=== PATIENT | female | born 1975 | race Caucasian/White ===

== ENCOUNTER 2020-05-13 19:16 | Emergency (ER) | payer MEDICAID ==
[~2020-05-13] VITALS: Ht 165.1 cm; Wt 102.2 kg
[2020-05-13 19:26] VITALS: BP 176/112
[2020-05-13] MEDS ORDERED: SULF1TAB49 PO (20:41)
== END 2020-05-13 21:01 | disposition home or self-care (01) ==
LOC: ER 19:16
DX: S80.862A Insect bite (nonvenomous), left lower leg, initial encounter (principal); L02.416 Cutaneous abscess of left lower limb; Z79.2 Long term (current) use of antibiotics; W57.XXXA Bitten or stung by nonvenomous insect and other nonvenomous arthropods, initial encounter; Y93.89 Activity, other specified; Y92.89 Other specified places as the place of occurrence of the external cause; Y99.8 Other external cause status
CPT/HCPCS: 99283

== ENCOUNTER 2020-07-16 10:52 | Inpatient (IN) | payer MEDICAID ==
[~2020-07-16] VITALS: Ht 162.6 cm; Wt 100.0 kg
[2020-07-16] MEDS ORDERED: normal saline 1000ML IV soln IVB ONE (11:15)
[2020-07-16 11:38] LABS: URINE HCG NEGATIVE (NEG)
[2020-07-16 11:50] LABS: CLARITY,URINE CLOUDY (Clear); COLOR,URINE YELLOW (Yellow); GLUCOSE, URINE NEGATIVE (Neg); KETONES,URINE NEGATIVE (Neg); LEUKOCYTE ESTERASE ,URINE MODERATE (Neg); NITRITES, URINE POSITIVE (Neg); OCCULT BLOOD,URINE LARGE (Neg); PROTEIN,URINE 100 mg/dl (Neg)
[2020-07-16 11:51] LABS: BASOPHILS % (AUTO) 0.1 % (0-1); EOSINOPHILS # (AUTO) 0.1 X10'3 (0-0.9); EOSINOPHILS % (AUTO) 0.6 % (0-6); HEMOGLOBIN 15.2 g/dl (12.0-16.0); LYMPHOCYTES # (AUTO) 1.3 X10'3 (1.1-4.8); LYMPHOCYTES % (AUTO) 7.1 % (21-51); MEAN CORPUSCULAR HEMOGLOBIN 36.2 PG (27.0-31.0); MEAN CORPUSCULAR HGB CONC 33.8 g/dL (33.0-36.5); MEAN PLATELET VOLUME 7.9 FL (7.4-10.4); MONOCYTES # (AUTO) 1.1 X10'3 (0-0.9); MONOCYTES % (AUTO) 6.4 % (2-12); NEUTROPHILS # (AUTO) 15.1 X10'3 (1.8-7.7); NEUTROPHILS % (AUTO) 85.8 % (42-75); PLATELET COUNT 350 X10'3 (140-440); RED BLOOD COUNT 4.21 X10'6 (4.20-5.60); RED CELL DISTRIBUTION WIDTH 16.9 % (11.5-14.5); WHITE BLOOD COUNT 17.6 X10'3 (4.5-11.0)
[2020-07-16 11:57] LABS: UA COLLECTION TYPE CLN CATCH MIDSTREAM
[2020-07-16 11:59] LABS: ALANINE AMINOTRANSFERASE 43 U/L (12-78); ALBUMIN 3.1 G/DL (3.4-5.0); ALBUMIN/GLOBULIN RATIO 0.6 (1.1-1.5); ALKALINE PHOSPHATASE 73 IU/L (46-116); ANION GAP 12 (8-16); ASPARTATE AMINO TRANSFERASE 38 U/L (10-37); BILIRUBIN,TOTAL 2.6 MG/DL (0.1-1.0); BLOOD UREA NITROGEN 6 MG/DL (7-18); BUN/CREATININE RATIO 5.9 (6.6-38.0); CALCIUM 8.8 MG/DL (8.5-10.1); CHLORIDE 104 MMOL/L (99-107); CREATININE 1.01 MG/DL (0.40-0.90); GLUCOSE 129 MG/DL (70-104); LIPASE < 50 U/L (73-393); POTASSIUM 3.7 MMOL/L (3.5-5.1); SODIUM 141 MMOL/L (135-145); TOTAL CARBON DIOXIDE 24.6 MMOL/L (24-32); TOTAL PROTEIN 7.9 G/DL (6.4-8.2); eGFR 59 ML/MIN
[2020-07-16 12:13] LABS: SQUAMOUS EPITHELIAL CELL,UR MANY /LPF (FEW)
[2020-07-16 12:14] LABS: MUCUS STRANDS MODERATE /LPF (Neg)
[2020-07-16 12:17] LABS: BACTERIA,URINE 3+ /HPF (Neg)
[2020-07-16 12:19] LABS: WBC CLUMPS,URINE MANY /HPF (NEGATIVE); WBC,URINE TNTC /HPF (0-4)
[2020-07-16] MEDS ORDERED: acetaminophen 325mg tablet PO ONE (12:30)
[2020-07-16] MEDS ORDERED: CefTRIAXone/D5W-Rocephin 1gm 50 ML IV ONE (13:10)
[2020-07-16] MEDS ORDERED: ondansetron/PF 4mg/2ml inj IV ONE ×2 (13:15→19:50)
[2020-07-16] MEDS ORDERED: iohexol 300mg/ml 100ml inj. ONE (13:38)
[2020-07-16] MEDS ORDERED: normal saline 1000ml 1,000 ML IV ONE (16:30)
[2020-07-16] MEDS ORDERED: potassium Cl 20 mEq SR tablet PO PRN (19:25)
[2020-07-16] MEDS ORDERED: acetaminophen 325mg tablet PO PRN (19:25)
[2020-07-16] MEDS ORDERED: potassium CL 10mEq/100ml bag 100 ML IV PRN ×2 (19:25)
[2020-07-16] MEDS: K and/or MAG REPLACEMENT MC SCH (20:00)
[2020-07-16] MEDS: levoFLOXACIN-Levaquin 500mg/D5 100 ML IV SCH (21:02)
[2020-07-16] MEDS: morphine 2 MG/ML inj. syringe IV PRN (21:30)
[2020-07-16] MEDS: ondansetron/PF 4mg/2ml inj IV PRN (21:30)
[2020-07-16] MEDS: normal saline 1000ml 1,000 ML IV SCH (22:24)
--- NOTE | 2020-07-16 22:27 | NUR ---
temp 102.6 after tylenol. paged
[2020-07-16] MEDS ORDERED: ibuprofen tablet 400 MG TABLET PO ONE (22:35)
[2020-07-17] MEDS: metroNIDAZOLE-Flagyl 500mg/NS 100 ML IV SCH ×4 (01:11→23:45)
[2020-07-17] MEDS: normal saline 1000ml 1,000 ML IV SCH ×3 (05:25→23:44)
--- NOTE | 2020-07-17 07:50 | NUR ---
Pt became tearful when asked about home meds. She stated being dx w/v Bipolar I, but off meds since 09/2019 "because I haven't been to [facility] in 6 yrs and they wouldn't get me back in." Hospitalist Noe page seeking possible restart of Celexa 20mg daily.
[2020-07-17] MEDS: K and/or MAG REPLACEMENT MC SCH ×2 (08:00→20:00)
[2020-07-17] MEDS: levoFLOXACIN-Levaquin 500mg/D5 100 ML IV SCH (08:41)
[2020-07-17] MEDS: morphine 2 MG/ML inj. syringe IV PRN (08:51)
[2020-07-17] MEDS: ondansetron/PF 4mg/2ml inj IV PRN (08:51)
[2020-07-17 08:56] LABS: BASOPHILS % (AUTO) 0.3 % (0-1); EOSINOPHILS % (AUTO) 0.3 % (0-6); HEMATOCRIT 37.2 % (35.0-45.0); HEMOGLOBIN 12.3 g/dl (12.0-16.0); LYMPHOCYTES # (AUTO) 0.9 X10'3 (1.1-4.8); LYMPHOCYTES % (AUTO) 7.9 % (21-51); MEAN CORPUSCULAR HEMOGLOBIN 35.7 PG (27.0-31.0); MEAN CORPUSCULAR HGB CONC 33.1 g/dL (33.0-36.5); MEAN CORPUSCULAR VOLUME 107.7 FL (78-98); MEAN PLATELET VOLUME 8.2 FL (7.4-10.4); MONOCYTES # (AUTO) 0.8 X10'3 (0-0.9); MONOCYTES % (AUTO) 7.3 % (2-12); NEUTROPHILS # (AUTO) 9.5 X10'3 (1.8-7.7); NEUTROPHILS % (AUTO) 84.2 % (42-75); PLATELET COUNT 229 X10'3 (140-440); RED BLOOD COUNT 3.45 X10'6 (4.20-5.60); RED CELL DISTRIBUTION WIDTH 16.6 % (11.5-14.5); WHITE BLOOD COUNT 11.3 X10'3 (4.5-11.0)
[2020-07-17 08:59] LABS: ALBUMIN 2.2 G/DL (3.4-5.0); ANION GAP 7 (8-16); BLOOD UREA NITROGEN 8 MG/DL (7-18); BUN/CREATININE RATIO 9.5 (6.6-38.0); CALCIUM 7.7 MG/DL (8.5-10.1); CHLORIDE 110 MMOL/L (99-107); CREATININE 0.84 MG/DL (0.40-0.90); GLUCOSE 108 MG/DL (70-104); POTASSIUM 3.8 MMOL/L (3.5-5.1); SODIUM 143 MMOL/L (135-145); TOTAL CARBON DIOXIDE 26.2 MMOL/L (24-32); eGFR 73 ML/MIN
--- NOTE | 2020-07-17 09:58 | NUR ---
Pt gave verbal consent to update mother Meredith on status which was done.
[2020-07-17] MEDS ORDERED: magnesium Cl slow-release 64mg tablet PO PRN (10:10)
[2020-07-17] MEDS ORDERED: magnesium 4gm in 100ml NS 100 ML IV PRN (10:10)
[2020-07-17] MEDS: citalopram 20mg tablet PO SCH (10:42)
[2020-07-17] MEDS: HYDROmorphone inj. 0.5 MG/0.5 ML DISP.SYRIN IV PRN ×2 (11:04→17:45)
[2020-07-17] MEDS ORDERED: NO HOME MEDS (14:18)
--- NOTE | 2020-07-17 17:00 | NUR ---
given warm blanket,vital signs rechecked.
[2020-07-17 17:40] VITALS: BP 129/89
--- NOTE | 2020-07-17 18:40 | NUR ---
Problems reprioritized. Patient report given, questions answered & plan of care reviewed with CARMEL Stein.
--- NOTE | 2020-07-17 18:41 | NUR ---
Patient in room [facility] 340. I have received report from CARMEL Graham and had the opportunity to ask questions and assume patient care.
[2020-07-17] MEDS ORDERED: K and/or MAG REPLACEMENT MC SCH (20:00)
[2020-07-18 02:56] LABS: OCCULT BLOOD STOOL NEGATIVE (Neg)
--- NOTE | 2020-07-18 06:05 | NUR ---
Patient in room [facility] 340. I have received report from CARMEL Stein and had the opportunity to ask questions and assume patient care.
--- NOTE | 2020-07-18 06:11 | NUR ---
Problems reprioritized. Patient report given, questions answered & plan of care reviewed with CARMEL Graham.
[2020-07-18 06:30] VITALS: BP 124/91
[2020-07-18 06:45] LABS: BASOPHILS % (AUTO) 0.4 % (0-1); EOSINOPHILS % (AUTO) 0.6 % (0-6); HEMATOCRIT 35.6 % (35.0-45.0); LYMPHOCYTES # (AUTO) 1.2 X10'3 (1.1-4.8); LYMPHOCYTES % (AUTO) 15.1 % (21-51); MEAN CORPUSCULAR HEMOGLOBIN 36.1 PG (27.0-31.0); MEAN CORPUSCULAR HGB CONC 33.7 g/dL (33.0-36.5); MEAN CORPUSCULAR VOLUME 107.2 FL (78-98); MEAN PLATELET VOLUME 8.7 FL (7.4-10.4); MONOCYTES # (AUTO) 0.7 X10'3 (0-0.9); NEUTROPHILS # (AUTO) 5.8 X10'3 (1.8-7.7); NEUTROPHILS % (AUTO) 74.9 % (42-75); PLATELET COUNT 235 X10'3 (140-440); RED BLOOD COUNT 3.32 X10'6 (4.20-5.60); RED CELL DISTRIBUTION WIDTH 16.5 % (11.5-14.5); WHITE BLOOD COUNT 7.7 X10'3 (4.5-11.0)
--- NOTE | 2020-07-18 06:45 | NUR ---
Patient in room [facility] 340. I have received report from Emil BURT and had the opportunity to ask questions and assume patient care. Addendum: 07/18/20 at 0646 by Emil Beltrán RN Correction to the above note: charted in the wrong chart. I am not assigned to this patient
[2020-07-18 07:00] LABS: ALANINE AMINOTRANSFERASE 30 U/L (12-78); ALBUMIN 2.2 G/DL (3.4-5.0); ALBUMIN/GLOBULIN RATIO 0.6 (1.1-1.5); ALKALINE PHOSPHATASE 51 IU/L (46-116); ANION GAP 10 (8-16); ASPARTATE AMINO TRANSFERASE 20 U/L (10-37); BILIRUBIN,TOTAL 0.9 MG/DL (0.1-1.0); BLOOD UREA NITROGEN 5 MG/DL (7-18); BUN/CREATININE RATIO 7.2 (6.6-38.0); CALCIUM 8.8 MG/DL (8.5-10.1); CHLORIDE 111 MMOL/L (99-107); CREATININE 0.69 MG/DL (0.40-0.90); GLUCOSE 91 MG/DL (70-104); MAGNESIUM 1.7 MG/DL (1.5-2.4); PHOSPHORUS 2.4 MG/DL (2.3-4.5); POTASSIUM 3.2 MMOL/L (3.5-5.1); SODIUM 144 MMOL/L (135-145); TOTAL CARBON DIOXIDE 22.7 MMOL/L (24-32); TOTAL PROTEIN 6.2 G/DL (6.4-8.2); eGFR > 90 ML/MIN
[2020-07-18] MEDS: K and/or MAG REPLACEMENT MC SCH ×2 (07:29→20:00)
[2020-07-18] MEDS: citalopram 20mg tablet PO SCH (09:56)
[2020-07-18] MEDS: metroNIDAZOLE-Flagyl 500mg/NS 100 ML IV SCH ×2 (09:57→17:29)
[2020-07-18] MEDS: heparin, porcine 5000 units/ml vial SQ SCH ×2 (09:59→21:13)
[2020-07-18] MEDS: HYDROmorphone inj. 0.5 MG/0.5 ML DISP.SYRIN IV PRN (10:13)
[2020-07-18] MEDS: potassium Cl 20 mEq SR tablet PO PRN ×3 (10:22→23:05)
[2020-07-18 11:00] VITALS: BP 133/86
[2020-07-18] MEDS ORDERED: HYDROcodone/acetaminophen 5mg/325mg tablet PO PRN (12:05)
[2020-07-18] MEDS: normal saline 1000ml 1,000 ML IV SCH ×2 (12:10→23:05)
[2020-07-18] MEDS: levoFLOXACIN-Levaquin 500mg/D5 100 ML IV SCH (12:10)
[2020-07-18] MEDS: HYDROcodone/acetaminophen 10/325mg tab PO PRN ×3 (12:14→23:09)
[2020-07-18 18:00] VITALS: BP 120/79
--- NOTE | 2020-07-18 18:30 | NUR ---
Problems reprioritized. Patient report given, questions answered & plan of care reviewed with CARMEL Stein.
--- NOTE | 2020-07-18 19:05 | NUR ---
I have received report from CARMEL Odom and had the opportunity to ask questions and assume patient care. Addendum: 07/19/20 at 0611 by Emil Beltrán RN Received report from CARMEL Graham
[2020-07-18] MEDS: lactobacillus rhamnosus 10,000 MMU CELLS/CAPSULE PO SCH (20:00)
[2020-07-19] MEDS: metroNIDAZOLE-Flagyl 500mg/NS 100 ML IV SCH ×2 (00:03→10:45)
--- NOTE | 2020-07-19 06:05 | NUR ---
Patient in room [facility] 340. I have received report from CARMEL Stein and had the opportunity to ask questions and assume patient care.
--- NOTE | 2020-07-19 06:10 | NUR ---
Problems reprioritized. Patient report given, questions answered & plan of care reviewed with CARMEL Graham.
[2020-07-19 06:30] VITALS: BP 149/99
[2020-07-19 06:33] LABS: BASOPHILS % (AUTO) 0.8 % (0-1); EOSINOPHILS # (AUTO) 0.1 X10'3 (0-0.9); EOSINOPHILS % (AUTO) 2.6 % (0-6); HEMATOCRIT 32.8 % (35.0-45.0); HEMOGLOBIN 11.1 g/dl (12.0-16.0); LYMPHOCYTES % (AUTO) 21.8 % (21-51); MEAN CORPUSCULAR HEMOGLOBIN 36.6 PG (27.0-31.0); MEAN CORPUSCULAR HGB CONC 33.8 g/dL (33.0-36.5); MEAN CORPUSCULAR VOLUME 108.1 FL (78-98); MEAN PLATELET VOLUME 8.2 FL (7.4-10.4); MONOCYTES # (AUTO) 0.6 X10'3 (0-0.9); MONOCYTES % (AUTO) 12.2 % (2-12); NEUTROPHILS # (AUTO) 2.9 X10'3 (1.8-7.7); NEUTROPHILS % (AUTO) 62.6 % (42-75); PLATELET COUNT 233 X10'3 (140-440); RED BLOOD COUNT 3.04 X10'6 (4.20-5.60); RED CELL DISTRIBUTION WIDTH 16.5 % (11.5-14.5); WHITE BLOOD COUNT 4.6 X10'3 (4.5-11.0)
[2020-07-19 06:59] LABS: ALANINE AMINOTRANSFERASE 27 U/L (12-78); ALBUMIN 2.1 G/DL (3.4-5.0); ALBUMIN/GLOBULIN RATIO 0.6 (1.1-1.5); ALKALINE PHOSPHATASE 43 IU/L (46-116); ANION GAP 9 (8-16); ASPARTATE AMINO TRANSFERASE 20 U/L (10-37); BILIRUBIN,TOTAL 0.6 MG/DL (0.1-1.0); BLOOD UREA NITROGEN 3 MG/DL (7-18); CALCIUM 7.9 MG/DL (8.5-10.1); CHLORIDE 110 MMOL/L (99-107); GLUCOSE 82 MG/DL (70-104); MAGNESIUM 1.6 MG/DL (1.5-2.4); PHOSPHORUS 2.5 MG/DL (2.3-4.5); POTASSIUM 3.5 MMOL/L (3.5-5.1); SODIUM 141 MMOL/L (135-145); TOTAL CARBON DIOXIDE 21.9 MMOL/L (24-32); TOTAL PROTEIN 5.9 G/DL (6.4-8.2); eGFR > 90 ML/MIN
[2020-07-19] MEDS: normal saline 1000ml 1,000 ML IV SCH (07:25)
[2020-07-19] MEDS: K and/or MAG REPLACEMENT MC SCH (07:56)
[2020-07-19] MEDS: heparin, porcine 5000 units/ml vial SQ SCH ×2 (07:56→10:45)
[2020-07-19] MEDS: citalopram 20mg tablet PO SCH (10:45)
[2020-07-19] MEDS: lactobacillus rhamnosus 10,000 MMU CELLS/CAPSULE PO SCH (10:45)
[2020-07-19] MEDS ORDERED: METR-159 PO (10:54)
[2020-07-19] MEDS ORDERED: LEVO750T46 PO (10:54)
[2020-07-19] MEDS ORDERED: LACT1CAP26 PO (10:54)
[2020-07-19 11:00] VITALS: BP 133/82
[2020-07-19] MEDS: levoFLOXACIN-Levaquin 500mg/D5 100 ML IV SCH (12:44)
--- NOTE | 2020-07-19 16:00 | NUR ---
DC inst provided to pt. IV DC'd, tip intact. All belongings sent w/pt. WC to front lobby.
== END 2020-07-19 15:58 | disposition home or self-care (01) | DRG 720 ==
LOC: ER 10:53 → ED HOLD 19:24 → SUR 3N 07-17 17:42
PROVIDERS: ADMIT Internal Medicine; ATTEND Internal Medicine
DX: A41.9 Sepsis, unspecified organism (principal); N12 Tubulo-interstitial nephritis, not specified as acute or chronic; F32.9 Major depressive disorder, single episode, unspecified; I10 Essential (primary) hypertension; K50.90 Crohn's disease, unspecified, without complications; Z20.828 Contact with and (suspected) exposure to other viral communicable diseases; Z87.59 Personal history of other complications of pregnancy, childbirth and the puerperium; K52.9 Noninfective gastroenteritis and colitis, unspecified
CPT/HCPCS: 36415; 74177; 76775; 80048; 80053; 81001; 81025; 82272; 83605; 83690; 83735; 84100; 84145; 84443; 85025; 87040; 87081; 87088; 87502; 87503; 87635; 89055; 99285; G0378; J0696; J1170; J1644; J1956; J2270; J2405; J3490; J7030; Q9967

== ENCOUNTER 2021-02-13 09:22 | Inpatient (IN) | payer MEDICAID ==
[~2021-02-13] VITALS: Ht 165.1 cm; Wt 88.6 kg
[~2021-02-13 09:22] MED LIST: LACT1CAP26 PO
[2021-02-13] MEDS ORDERED: ringers solution, lacted 1,000 ML IV ONE ×2 (10:15→12:10)
[2021-02-13] MEDS ORDERED: morphine 4 MG/ML inj SYRINge IV ONE ×2 (10:15→12:10)
[2021-02-13] MEDS ORDERED: haloperidol lactate 5mg/ml inj IV ONE (10:15)
[2021-02-13 10:30] LABS: BASOPHILS % (AUTO) 0.1 % (0-1); EOSINOPHILS % (AUTO) 0 % (0-6); HEMATOCRIT 46.7 % (35.0-45.0); HEMOGLOBIN 15.7 g/dl (12.0-16.0); LYMPHOCYTES # (AUTO) 0.5 X10'3 (1.1-4.8); LYMPHOCYTES % (AUTO) 2.3 % (21-51); MEAN CORPUSCULAR HEMOGLOBIN 36.1 PG (27.0-31.0); MEAN CORPUSCULAR HGB CONC 33.7 g/dL (33.0-36.5); MEAN CORPUSCULAR VOLUME 107.3 FL (78-98); MEAN PLATELET VOLUME 8.1 FL (7.4-10.4); MONOCYTES # (AUTO) 1.2 X10'3 (0-0.9); NEUTROPHILS # (AUTO) 18.1 X10'3 (1.8-7.7); NEUTROPHILS % (AUTO) 91.6 % (42-75); PLATELET COUNT 278 X10'3 (140-440); RED BLOOD COUNT 4.36 X10'6 (4.20-5.60); RED CELL DISTRIBUTION WIDTH 17.6 % (11.5-14.5); WHITE BLOOD COUNT 19.8 X10'3 (4.5-11.0)
[2021-02-13 10:49] LABS: ALANINE AMINOTRANSFERASE 29 U/L (12-78); ALBUMIN/GLOBULIN RATIO 0.9 (1.1-1.5); ALKALINE PHOSPHATASE 72 IU/L (46-116); ANION GAP 22 (8-16); ASPARTATE AMINO TRANSFERASE 30 U/L (10-37); BILIRUBIN,TOTAL 1.4 MG/DL (0.1-1.0); BLOOD UREA NITROGEN 11 MG/DL (7-18); BUN/CREATININE RATIO 8.3 (6.6-38.0); CALCIUM 8.9 MG/DL (8.5-10.1); CHLORIDE 100 MMOL/L (99-107); CREATININE 1.32 MG/DL (0.40-0.90); GLUCOSE 174 MG/DL (70-104); POTASSIUM 4.2 MMOL/L (3.5-5.1); SODIUM 138 MMOL/L (135-145); TOTAL CARBON DIOXIDE 15.7 MMOL/L (24-32); TOTAL PROTEIN 8.4 G/DL (6.4-8.2); eGFR 43 ML/MIN
[2021-02-13] MEDS ORDERED: iohexol 300mg/ml 100ml inj. ONE (10:55)
[2021-02-13 11:09] LABS: LIPASE 4806 U/L (73-393)
[2021-02-13 12:34] LABS: CLARITY,URINE CLEAR (Clear); COLOR,URINE YELLOW (Yellow); GLUCOSE, URINE NEGATIVE (Neg); KETONES,URINE 15 mg/dl (Neg); LEUKOCYTE ESTERASE ,URINE NEGATIVE (Neg); NITRITES, URINE NEGATIVE (Neg); OCCULT BLOOD,URINE SMALL (Neg); PH,URINE 6.5 (4.8-8.0); PROTEIN,URINE 30 mg/dl (Neg); UROBILINOGEN,URINE 0.2 E.U/dL (0.2-1.0)
[2021-02-13 12:37] LABS: URINE HCG NEGATIVE (NEG)
[2021-02-13 12:38] LABS: UA COLLECTION TYPE CLN CATCH MIDSTREAM
[2021-02-13 12:39] LABS: WBC,URINE 0-4 /HPF (0-4)
[2021-02-13 12:40] LABS: BACTERIA,URINE FEW /HPF (Neg); MUCUS STRANDS NONE SEEN /LPF (Neg); RBC,URINE NONE SEEN /HPF (0-2); SQUAMOUS EPITHELIAL CELL,UR MODERATE /LPF (FEW)
[2021-02-13] MEDS ORDERED: LORazepam 1 MG tablet PO PRN (12:50)
[2021-02-13] MEDS ORDERED: HYDROcodone/acetaminophen 5mg/325mg tablet PO PRN (12:50)
[2021-02-13] MEDS ORDERED: LORazepam 2 mg/ml vial IV PRN (12:50)
[2021-02-13] MEDS ORDERED: potassium Cl 40MEQ/1/2NS 520ml 520 ML IV PRN ×2 (12:50)
[2021-02-13] MEDS ORDERED: ondansetron/PF 4mg/2ml inj IV PRN (12:50)
[2021-02-13] MEDS ORDERED: potassium Cl 20 mEq SR tablet PO PRN (12:50)
[2021-02-13] MEDS ORDERED: magnesium hydroxide 30ml (MOM) UD suspension PO PRN (12:50)
[2021-02-13] MEDS ORDERED: acetaminophen 325mg tablet PO PRN ×2 (12:50)
[2021-02-13] MEDS ORDERED: magnesium 2GM in 50ml NS 50 ML IV PRN (12:50)
[2021-02-13] MEDS ORDERED: mag hydrox/Alum hydrox/simeth 30ml oral suspension PO PRN (12:50)
[2021-02-13] MEDS ORDERED: magnesium 4gm in 100ml NS 100 ML IV PRN (12:50)
[2021-02-13] MEDS ORDERED: morphine 2 MG/ML inj. syringe IV PRN (12:50)
[2021-02-13] MEDS ORDERED: DIVA-51 PO (13:24)
[2021-02-13] MEDS ORDERED: TRAZ-251 PO (13:24)
[2021-02-13] MEDS ORDERED: CITA20TA28 PO (13:28)
[2021-02-13 14:05] VITALS: BP 148/89
--- NOTE | 2021-02-13 14:16 | NUR ---
PAGER ID: [phone] MESSAGE: Isis [phone] - re [id number] [place] critical Lactic acid of 4.8. Any orders?
[2021-02-13] MEDS: normal saline 1000ml 1,000 ML IV SCH ×2 (14:39→19:19)
[2021-02-13] MEDS: HYDROcodone/acetaminophen 10/325mg tab PO PRN ×2 (15:02→21:38)
[2021-02-13] MEDS: morphine 2 MG/ML inj. syringe IV PRN ×2 (15:03→19:43)
[2021-02-13] MEDS: piperacillin/tazo 3.375gm/50ml 50 ML IV SCH (15:58)
[2021-02-13 18:00] VITALS: BP 156/101
--- NOTE | 2021-02-13 19:10 | NUR ---
Patient in room ORTHO 4009. I have received report from NILAM BURT and had the opportunity to ask questions and assume patient care.
[2021-02-13] MEDS: heparin, porcine 5000 units/ml vial SQ SCH (19:39)
[2021-02-13] MEDS: K and/or MAG REPLACEMENT MC SCH (19:56)
[2021-02-13] MEDS ORDERED: temazepam 15mg capsule PO PRN (21:00)
[2021-02-14] MEDS: piperacillin/tazo 3.375gm/50ml 50 ML IV SCH ×4 (00:08→23:21)
[2021-02-14] MEDS: morphine 2 MG/ML inj. syringe IV PRN ×6 (00:09→22:17)
[2021-02-14] MEDS: normal saline 1000ml 1,000 ML IV SCH ×5 (00:20→19:59)
[2021-02-14] MEDS: HYDROcodone/acetaminophen 10/325mg tab PO PRN ×6 (01:43→23:22)
[2021-02-14 06:00] VITALS: BP 156/104
[2021-02-14 06:44] LABS: CHOL/HDL RATIO 4.5 (0.00-4.99); CHOLESTEROL 183 MG/DL (0-200); HDL CHOLESTEROL 41 MG/DL (35-60); LDL CHOLESTEROL 86 MG/DL (50-100); LIPASE 1675 U/L (73-393); MAGNESIUM 1.4 MG/DL (1.5-2.4); TRIGLYCERIDES 322 MG/DL (20-135)
--- NOTE | 2021-02-14 06:45 | NUR ---
Problems reprioritized. Patient report given, questions answered & plan of care reviewed with JU BURT.
--- NOTE | 2021-02-14 06:46 | NUR ---
Patient in room ORTHO 4009C. I have received report from CARMEL GUIDO and had the opportunity to ask questions and assume patient care.
[2021-02-14] MEDS: K and/or MAG REPLACEMENT MC SCH ×2 (08:00→20:00)
[2021-02-14] MEDS: heparin, porcine 5000 units/ml vial SQ SCH ×2 (08:41→20:29)
[2021-02-14 10:00] VITALS: BP 131/95
[2021-02-14] MEDS: magnesium Cl slow-release 64mg tablet PO PRN ×2 (12:46→18:02)
[2021-02-14 18:00] VITALS: BP 142/95
--- NOTE | 2021-02-14 18:22 | NUR ---
Problems reprioritized. Patient report given, questions answered & plan of care reviewed with CARMEL ERICKSON.
[2021-02-14] MEDS: lactobacillus rhamnosus 10,000 MMU CELLS/CAPSULE PO SCH (20:29)
[2021-02-14 22:00] VITALS: BP 136/99
[2021-02-15] MEDS: normal saline 1000ml 1,000 ML IV SCH ×5 (00:35→21:19)
[2021-02-15] MEDS: morphine 2 MG/ML inj. syringe IV PRN ×5 (02:59→21:08)
[2021-02-15] MEDS: HYDROcodone/acetaminophen 10/325mg tab PO PRN ×5 (03:29→22:26)
--- NOTE | 2021-02-15 06:46 | NUR ---
Patient in room ORTHO 4007. I have received report from CARMEL ROSE and had the opportunity to ask questions and assume patient care.
[2021-02-15] MEDS: lactobacillus rhamnosus 10,000 MMU CELLS/CAPSULE PO SCH ×2 (07:08→21:16)
[2021-02-15] MEDS: heparin, porcine 5000 units/ml vial SQ SCH ×2 (07:09→21:18)
[2021-02-15] MEDS: piperacillin/tazo 3.375gm/50ml 50 ML IV SCH ×2 (07:24→16:02)
[2021-02-15] MEDS: K and/or MAG REPLACEMENT MC SCH ×2 (08:00→20:00)
[2021-02-15 10:00] VITALS: BP 139/97
[2021-02-15 10:33] LABS: BASOPHILS % (AUTO) 0.2 % (0-1); EOSINOPHILS % (AUTO) 0.1 % (0-6); HEMATOCRIT 33.1 % (35.0-45.0); HEMOGLOBIN 11.3 g/dl (12.0-16.0); LYMPHOCYTES # (AUTO) 0.8 X10'3 (1.1-4.8); LYMPHOCYTES % (AUTO) 6.3 % (21-51); MEAN CORPUSCULAR HEMOGLOBIN 36.5 PG (27.0-31.0); MEAN CORPUSCULAR VOLUME 107.3 FL (78-98); MEAN PLATELET VOLUME 8.1 FL (7.4-10.4); MONOCYTES # (AUTO) 1.1 X10'3 (0-0.9); MONOCYTES % (AUTO) 8.7 % (2-12); NEUTROPHILS # (AUTO) 10.8 X10'3 (1.8-7.7); NEUTROPHILS % (AUTO) 84.7 % (42-75); PLATELET COUNT 146 X10'3 (140-440); RED BLOOD COUNT 3.09 X10'6 (4.20-5.60); WHITE BLOOD COUNT 12.8 X10'3 (4.5-11.0)
[2021-02-15 12:54] LABS: ALANINE AMINOTRANSFERASE 16 U/L (12-78); ALBUMIN 2.4 G/DL (3.4-5.0); ALBUMIN/GLOBULIN RATIO 0.7 (1.1-1.5); ALKALINE PHOSPHATASE 50 IU/L (46-116); ANION GAP 11 (8-16); ASPARTATE AMINO TRANSFERASE 19 U/L (10-37); BILIRUBIN,TOTAL 0.9 MG/DL (0.1-1.0); BLOOD UREA NITROGEN 4 MG/DL (7-18); BUN/CREATININE RATIO 5.8 (6.6-38.0); CALCIUM 6.2 MG/DL (8.5-10.1); CHLORIDE 106 MMOL/L (99-107); CREATININE 0.69 MG/DL (0.40-0.90); GLUCOSE 82 MG/DL (70-104); LIPASE 390 U/L (73-393); MAGNESIUM 1.3 MG/DL (1.5-2.4); SODIUM 140 MMOL/L (135-145); TOTAL CARBON DIOXIDE 23.5 MMOL/L (24-32); eGFR > 90 ML/MIN
[2021-02-15 12:59] LABS: POTASSIUM 2.8 MMOL/L (3.5-5.1)
--- NOTE | 2021-02-15 13:08 | NUR ---
Page Sent PAGER ID: [phone] MESSAGE: JU [phone] RE: NAVJOT FOLEY [facility], PT'S K+ IS 2.8. WILL START REPLACING
[2021-02-15] MEDS: magnesium Cl slow-release 64mg tablet PO PRN ×2 (13:14→21:17)
[2021-02-15] MEDS: potassium Cl 20 mEq SR tablet PO PRN ×3 (13:14→21:14)
[2021-02-15] MEDS: calcium carbonate 500mg tablet PO SCH (16:48)
[2021-02-15 18:00] VITALS: BP 147/97
--- NOTE | 2021-02-15 18:41 | NUR ---
Problems reprioritized. Patient report given, questions answered & plan of care reviewed with CARMEL MARTIN.
[2021-02-15 22:00] VITALS: BP 144/92
[2021-02-16] MEDS: piperacillin/tazo 3.375gm/50ml 50 ML IV SCH ×2 (00:42→07:15)
[2021-02-16] MEDS: morphine 2 MG/ML inj. syringe IV PRN ×3 (01:08→10:14)
[2021-02-16] MEDS: normal saline 1000ml 1,000 ML IV SCH ×4 (01:11→11:55)
[2021-02-16] MEDS: HYDROcodone/acetaminophen 10/325mg tab PO PRN ×2 (03:00→07:14)
[2021-02-16 06:00] VITALS: BP 141/99
--- NOTE | 2021-02-16 06:09 | NUR ---
Patient in room ORTHO 4007. I have received report from CARMEL MARTIN and had the opportunity to ask questions and assume patient care.
[2021-02-16 06:52] LABS: BASOPHILS % (AUTO) 0.1 % (0-1); EOSINOPHILS % (AUTO) 0.3 % (0-6); HEMATOCRIT 32.2 % (35.0-45.0); HEMOGLOBIN 10.9 g/dl (12.0-16.0); LYMPHOCYTES # (AUTO) 0.7 X10'3 (1.1-4.8); LYMPHOCYTES % (AUTO) 6.3 % (21-51); MEAN CORPUSCULAR HEMOGLOBIN 36.7 PG (27.0-31.0); MEAN CORPUSCULAR HGB CONC 33.8 g/dL (33.0-36.5); MEAN CORPUSCULAR VOLUME 108.6 FL (78-98); MEAN PLATELET VOLUME 8.3 FL (7.4-10.4); MONOCYTES # (AUTO) 1.4 X10'3 (0-0.9); MONOCYTES % (AUTO) 12.3 % (2-12); NEUTROPHILS # (AUTO) 9.3 X10'3 (1.8-7.7); PLATELET COUNT 143 X10'3 (140-440); RED BLOOD COUNT 2.96 X10'6 (4.20-5.60); RED CELL DISTRIBUTION WIDTH 17.1 % (11.5-14.5); WHITE BLOOD COUNT 11.5 X10'3 (4.5-11.0)
[2021-02-16] MEDS: lactobacillus rhamnosus 10,000 MMU CELLS/CAPSULE PO SCH (07:14)
[2021-02-16 07:20] LABS: ALANINE AMINOTRANSFERASE 12 U/L (12-78); ALBUMIN/GLOBULIN RATIO 0.6 (1.1-1.5); ALKALINE PHOSPHATASE 50 IU/L (46-116); ANION GAP 11 (8-16); ASPARTATE AMINO TRANSFERASE 19 U/L (10-37); BILIRUBIN,TOTAL 0.9 MG/DL (0.1-1.0); BLOOD UREA NITROGEN 3 MG/DL (7-18); BUN/CREATININE RATIO 4.8 (6.6-38.0); CALCIUM 6.3 MG/DL (8.5-10.1); CHLORIDE 106 MMOL/L (99-107); CREATININE 0.62 MG/DL (0.40-0.90); GLUCOSE 87 MG/DL (70-104); LIPASE 168 U/L (73-393); MAGNESIUM 1.6 MG/DL (1.5-2.4); POTASSIUM 3.5 MMOL/L (3.5-5.1); SODIUM 137 MMOL/L (135-145); TOTAL CARBON DIOXIDE 19.6 MMOL/L (24-32); TOTAL PROTEIN 5.4 G/DL (6.4-8.2); eGFR > 90 ML/MIN
[2021-02-16] MEDS: heparin, porcine 5000 units/ml vial SQ SCH (07:22)
[2021-02-16] MEDS: K and/or MAG REPLACEMENT MC SCH (07:29)
[2021-02-16 10:00] VITALS: BP 125/88
[2021-02-16] MEDS ORDERED: HYDR-3965 PO ×2 (10:09→11:07)
[2021-02-16] MEDS: calcium carbonate 500mg tablet PO SCH ×2 (10:13→11:55)
--- NOTE | 2021-02-16 13:50 | NUR ---
Page Sent PAGER ID: [phone] MESSAGE: JU [id number] RE: ALAINA, NAVJOT 4007 PT AT A LITTLE LUNCH, SAID IT MADE HER NAUSEOUS, BUT THE PAIN IN HER ABDOMEN DID NOT INCREASE. WOULD YOU LIKE ME TO D/C HER, OR HOLD HER ANOTHER NIGHT? THANKS!
--- NOTE | 2021-02-16 14:26 | NUR ---
D/C INSTRUCTIONS GIVEN, QUESTIONS ANSWERED. BELONGINGS GATHERED BY SPOUSE, SENT WITH PT. IV D/C'D, CANNULA INTACT, NO COMPLICATIONS. D/C'D PT IN STABLE CONDITION TO HOME IN PRIVATE VEHICLE ACCOMPANIED BY SPOUSE. PT LEFT FLOOR AT 1425
[2021-02-16] MEDS ORDERED: traZODone 50mg tablet PO SCH (21:00)
[2021-02-16] MEDS ORDERED: divalproex 250mg tablet, delayed-release PO SCH (21:00)
[2021-02-17] MEDS ORDERED: citalopram 20mg tablet PO SCH (08:00)
== END 2021-02-16 14:29 | disposition home or self-care (01) | DRG 282 ==
LOC: ER 09:23 → ED HOLD 12:46 → ORTHO 4S 13:40
PROVIDERS: ADMIT Internal Medicine; ATTEND Internal Medicine
PROC: BW211ZZ Computerized Tomography (CT Scan) of Abdomen and Pelvis using Low Osmolar Contrast (ICD-10-PCS; principal; 2021-02-13)
DX: K85.20 Alcohol induced acute pancreatitis without necrosis or infection (principal); N17.0 Acute kidney failure with tubular necrosis; E87.2 Acidosis; K50.90 Crohn's disease, unspecified, without complications; E83.51 Hypocalcemia; E66.9 Obesity, unspecified; D72.829 Elevated white blood cell count, unspecified; E87.6 Hypokalemia; F10.20 Alcohol dependence, uncomplicated; F31.9 Bipolar disorder, unspecified; I10 Essential (primary) hypertension; Z68.32 Body mass index [BMI] 32.0-32.9, adult
CPT/HCPCS: 36415; 74177; 80053; 80061; 81001; 81025; 82948; 83605; 83690; 83735; 85025; 87040; 87081; 96361; 96374; 96375; 96376; 99285; G0378; J1630; J1644; J2270; J2543; J7030; J7120; Q9967

== ENCOUNTER 2021-08-01 19:49 | Emergency (ER) | payer MEDICAID ==
[~2021-08-01] VITALS: Ht 134.6 cm; Wt 81.8 kg
[~2021-08-01 19:49] MED LIST changes: +CITA20TA28 PO; +DIVA-51 PO; -LACT1CAP26 PO; +TRAZ-251 PO
[2021-08-01 21:03] VITALS: BP 119/86
[2021-08-01] MEDS ORDERED: LORazepam 1 MG tablet PO ONE (22:10)
== END 2021-08-01 23:08 | disposition home or self-care (01) ==
LOC: ER 19:50
DX: F41.0 Panic disorder [episodic paroxysmal anxiety] (principal); R06.02 Shortness of breath; I10 Essential (primary) hypertension; Z87.440 Personal history of urinary (tract) infections; Z98.51 Tubal ligation status; Z72.89 Other problems related to lifestyle; Z90.721 Acquired absence of ovaries, unilateral; Z79.899 Other long term (current) drug therapy
CPT/HCPCS: 36415; 71045; 84484; 93005; 99285

== ENCOUNTER 2022-03-06 21:56 | Emergency (ER) | payer MEDICAID ==
[~2022-03-06] VITALS: Ht 165.1 cm; Wt 90.9 kg
[2022-03-06 22:42] LABS: BASOPHILS % (AUTO) 0.8 % (0-1); EOSINOPHILS # (AUTO) 0.1 X10'3 (0-0.9); EOSINOPHILS % (AUTO) 2.8 % (0-6); HEMATOCRIT 37.2 % (35.0-45.0); HEMOGLOBIN 12.7 g/dl (12.0-16.0); LYMPHOCYTES # (AUTO) 1.6 X10'3 (1.1-4.8); LYMPHOCYTES % (AUTO) 35.1 % (21-51); MEAN CORPUSCULAR HEMOGLOBIN 33.5 PG (27.0-31.0); MEAN CORPUSCULAR HGB CONC 34.2 g/dL (33.0-36.5); MEAN CORPUSCULAR VOLUME 97.8 FL (78-98); MEAN PLATELET VOLUME 7.7 FL (7.4-10.4); MONOCYTES # (AUTO) 0.4 X10'3 (0-0.9); MONOCYTES % (AUTO) 9.1 % (2-12); NEUTROPHILS # (AUTO) 2.3 X10'3 (1.8-7.7); NEUTROPHILS % (AUTO) 52.2 % (42-75); PLATELET COUNT 176 X10'3 (140-440); RED CELL DISTRIBUTION WIDTH 13.3 % (11.5-14.5); WHITE BLOOD COUNT 4.5 X10'3 (4.5-11.0)
[2022-03-06 22:56] LABS: ALANINE AMINOTRANSFERASE 30 U/L (12-78); ALBUMIN 3.4 G/DL (3.4-5.0); ALBUMIN/GLOBULIN RATIO 0.9 (1.1-1.5); ALKALINE PHOSPHATASE 54 IU/L (46-116); ANION GAP 14 (8-16); ASPARTATE AMINO TRANSFERASE 20 U/L (10-37); BILIRUBIN,TOTAL 0.4 MG/DL (0.1-1.0); BLOOD UREA NITROGEN 6 MG/DL (7-18); BUN/CREATININE RATIO 9.1 (6.6-38.0); CALCIUM 8.3 MG/DL (8.5-10.1); CHLORIDE 108 MMOL/L (99-107); CREATININE 0.66 MG/DL (0.40-0.90); GLUCOSE 129 MG/DL (70-104); POTASSIUM 3.5 MMOL/L (3.5-5.1); SODIUM 144 MMOL/L (135-145); TOTAL CARBON DIOXIDE 22.1 MMOL/L (24-32); TOTAL PROTEIN 7.4 G/DL (6.4-8.2); eGFR > 90 ML/MIN
[2022-03-06 23:10] LABS: ETHANOL 0.198 GM/DL (0.0-0.010)
[2022-03-06 23:11] LABS: ACETAMINOPHEN < 2.0 UG/ML (10-30)
[2022-03-07] MEDS ORDERED: CHOL100046 PO (02:35)
[2022-03-07] MEDS ORDERED: THIA100T70 PO (02:35)
[2022-03-07] MEDS ORDERED: NALT50TA PO (02:35)
[2022-03-07] MEDS ORDERED: FOLI0.4T6 PO (02:35)
[2022-03-07 05:21] VITALS: BP 117/76
[2022-03-07 06:12] LABS: URINE HCG NEGATIVE (NEG)
[2022-03-07 06:21] LABS: CLARITY,URINE CLEAR (Clear); COLOR,URINE YELLOW (Yellow); GLUCOSE, URINE NEGATIVE (Neg); KETONES,URINE NEGATIVE (Neg); LEUKOCYTE ESTERASE ,URINE NEGATIVE (Neg); NITRITES, URINE NEGATIVE (Neg); OCCULT BLOOD,URINE NEGATIVE (Neg); PH,URINE 5.5 (4.8-8.0); PROTEIN,URINE NEGATIVE (Neg); UROBILINOGEN,URINE 0.2 E.U/dL (0.2-1.0)
[2022-03-07 06:23] LABS: UA COLLECTION TYPE CLN CATCH MIDSTREAM
[2022-03-07 06:29] LABS: URINE AMPHETAMINE SCREEN NEGATIVE (Neg); URINE BARBITUATE SCREEN NEGATIVE (Neg); URINE BENZODIAZEPINES SCREEN NEGATIVE (Neg); URINE CANNABINOID SCREEN NEGATIVE (Neg); URINE COCAINE SCREEN NEGATIVE (Neg); URINE METHADONE SCREEN NEGATIVE (Neg); URINE OPIATE SCREEN NEGATIVE (Neg); URINE PHENCYCLIDINE SCREEN NEGATIVE (Neg)
--- NOTE | 2022-03-07 06:55 | NUR ---
REPORTED OFF TO ANA BURT. [facility]
--- NOTE | 2022-03-07 06:55 | NUR ---
Assumed patient care at this time, report received from CARMEL Montes.
--- NOTE | 2022-03-07 12:34 | NUR ---
Called patient to inform of home medications needing to be picked up from the pharmacy. Patient verbalizes an understanding and will come to pharmacy to bean picker meds.
== END 2022-03-07 12:26 | disposition home or self-care (01) ==
LOC: ER 21:57
DX: T50.902A Poisoning by unspecified drugs, medicaments and biological substances, intentional self-harm, initial encounter (principal); R45.851 Suicidal ideations; F31.9 Bipolar disorder, unspecified; Z79.899 Other long term (current) drug therapy; Z90.49 Acquired absence of other specified parts of digestive tract; Y92.89 Other specified places as the place of occurrence of the external cause
CPT/HCPCS: 36415; 80053; 80305; 80320; 80329; 81003; 81025; 84443; 85025; 93005; 99285; A4615

== ENCOUNTER 2023-07-13 19:26 | Inpatient (IN) | payer MEDICAID ==
[~2023-07-13] VITALS: Ht 165.1 cm; Wt 90.9 kg
[2023-07-13] MEDS: dextrose 5%-1/2 normal saline 1,000 ML IV SCH (00:42)
[~2023-07-13 19:26] MED LIST changes: +CHOL100046 PO; +FOLI0.4T6 PO; +NALT50TA PO; +THIA100T70 PO
[2023-07-13] MEDS ORDERED: metoclopramide 5 mg/ml inj IV ONE (19:40)
[2023-07-13] MEDS ORDERED: normal saline 1000ML IV soln IVB ONE ×2 (19:40)
[2023-07-13] MEDS ORDERED: ketorolac trometh. 30mg/ml inj. IV ONE (19:40)
[2023-07-13] MEDS ORDERED: diphenhydrAMINE 50 mg/ml inj IV ONE (19:40)
[2023-07-13 19:46] LABS: BASOPHILS # (AUTO) 0.1 X10'3 (0-0.2); BASOPHILS % (AUTO) 0.6 % (0-1); EOSINOPHILS # (AUTO) 0.2 X10'3 (0-0.9); EOSINOPHILS % (AUTO) 1.6 % (0-6); HEMATOCRIT 43.5 % (35.0-45.0); HEMOGLOBIN 14.8 g/dl (12.0-16.0); LYMPHOCYTES # (AUTO) 3.7 X10'3 (1.1-4.8); LYMPHOCYTES % (AUTO) 30.7 % (21-51); MEAN CORPUSCULAR HEMOGLOBIN 32.6 PG (27.0-31.0); MEAN PLATELET VOLUME 7.8 FL (7.4-10.4); MONOCYTES % (AUTO) 8.2 % (2-12); NEUTROPHILS # (AUTO) 7.1 X10'3 (1.8-7.7); NEUTROPHILS % (AUTO) 58.9 % (42-75); PLATELET COUNT 261 X10'3 (140-440); RED BLOOD COUNT 4.53 X10'6 (4.20-5.60); RED CELL DISTRIBUTION WIDTH 14.1 % (11.5-14.5)
[2023-07-13] MEDS ORDERED: morphine 4 MG/ML inj SYRINge IV ONE (19:55)
[2023-07-13 19:59] LABS: ALANINE AMINOTRANSFERASE 60 U/L (12-78); ALKALINE PHOSPHATASE 89 IU/L (46-116); ANION GAP 15 (8-16); ASPARTATE AMINO TRANSFERASE 43 U/L (10-37); BILIRUBIN,TOTAL 0.7 MG/DL (0.1-1.0); BLOOD UREA NITROGEN 11 MG/DL (7-18); BUN/CREATININE RATIO 10.5 (10.0-20.0); CALCIUM 9.6 MG/DL (8.5-10.1); CHLORIDE 103 MMOL/L (99-107); CREATININE 1.05 MG/DL (0.40-0.90); GLUCOSE 171 MG/DL (70-104); POTASSIUM 3.4 MMOL/L (3.5-5.1); SODIUM 140 MMOL/L (135-145); TOTAL CARBON DIOXIDE 21.7 MMOL/L (24-32); TOTAL PROTEIN 8.2 G/DL (6.4-8.2); eCRCL 59 ML/MIN; eGFR 56 ML/MIN
[2023-07-13 20:01] LABS: LIPASE > 375 U/L (16-77)
[2023-07-13] MEDS ORDERED: iohexol 300mg/ml 100ml inj. ONE (20:22)
[2023-07-13] MEDS ORDERED: morphine 4 MG/ML inj SYRINge IV STA (21:00)
[2023-07-13] MEDS ORDERED: HYDROmorphone/PF 0.2 MG/ML SYRINGE IV PRN (22:10)
[2023-07-13] MEDS ORDERED: potassium Cl 20 mEq SR tablet PO PRN (22:10)
[2023-07-13] MEDS ORDERED: magnesium 4gm in 100ml NS 100 ML IV PRN (22:10)
[2023-07-13] MEDS ORDERED: potassium Cl 40MEQ/1/2NS 520ml 520 ML IV PRN (22:10)
[2023-07-13] MEDS ORDERED: mag hydrox/Alum hydrox/simeth 30ml oral suspension PO PRN (22:10)
[2023-07-13] MEDS ORDERED: magnesium Cl slow-release 64mg tablet PO PRN (22:10)
[2023-07-13] MEDS ORDERED: magnesium 2GM in 50ml NS 50 ML IV PRN (22:10)
[2023-07-13] MEDS ORDERED: magnesium hydroxide 30ml (MOM) UD suspension PO PRN (22:10)
[2023-07-13] MEDS ORDERED: normal saline 1000ml 1,000 ML IV SCH (22:10)
[2023-07-13] MEDS ORDERED: acetaminophen 325mg tablet PO PRN (22:10)
[2023-07-14] MEDS: HYDROmorphone inj. 0.5 MG/0.5 ML DISP.SYRIN IV PRN ×3 (01:07→10:32)
[2023-07-14] MEDS ORDERED: hydrALAZINE 20mg/ml inj. IV PRN (02:45)
[2023-07-14 03:13] LABS: BILIRUBIN,URINE NEGATIVE (Neg); CLARITY,URINE CLEAR (Clear); COLOR,URINE YELLOW (Yellow); GLUCOSE, URINE NEGATIVE (Neg); KETONES,URINE TRACE mg/dl (Neg); LEUKOCYTE ESTERASE ,URINE NEGATIVE (Neg); NITRITES, URINE NEGATIVE (Neg); OCCULT BLOOD,URINE TRACE-INTACT (Neg); PH,URINE 5.5 (4.8-8.0); PROTEIN,URINE NEGATIVE (Neg); UROBILINOGEN,URINE 0.2 E.U/dL (0.2-1.0)
[2023-07-14 03:14] LABS: URINE HCG NEGATIVE (NEG)
[2023-07-14 03:20] LABS: UA COLLECTION TYPE CLN CATCH MIDSTREAM
[2023-07-14 03:24] LABS: MUCUS STRANDS FEW /LPF (Neg); SQUAMOUS EPITHELIAL CELL,UR MANY /LPF (FEW)
[2023-07-14 03:25] LABS: BACTERIA,URINE FEW /HPF (Neg); HYALINE CASTS 0-3 /LPF (NEGATIVE); RBC,URINE 0-2 /HPF (0-2); WBC,URINE 0-4 /HPF (0-4)
[2023-07-14] MEDS ORDERED: HYDROmorphone/PF 0.2 MG/ML SYRINGE IV PRN (07:50)
[2023-07-14] MEDS: docusate sod 100mg capsule PO SCH ×2 (08:00→20:00)
[2023-07-14] MEDS: HYDROmorphone 1 mg/ml syringe IV PRN ×4 (08:02→20:04)
[2023-07-14] MEDS: enoxaparin 40mg/0.4ml syringe SUBCUT SCH (08:06)
[2023-07-14] MEDS: ondansetron/PF 4mg/2ml inj IV PRN ×2 (08:06→16:19)
[2023-07-14] MEDS: K and/or MAG REPLACEMENT MC SCH ×2 (08:07→20:00)
[2023-07-14] MEDS: dextrose 5%-1/2 normal saline 1,000 ML IV SCH ×3 (08:10→19:56)
[2023-07-14 09:43] LABS: PROTHROMBIN TIME 10.9 SECONDS (9.0-12.0)
[2023-07-14 09:54] LABS: BASOPHILS % (AUTO) 0.4 % (0-1); EOSINOPHILS % (AUTO) 0 % (0-6); HEMATOCRIT 39.5 % (35.0-45.0); HEMOGLOBIN 13.2 g/dl (12.0-16.0); LYMPHOCYTES # (AUTO) 0.5 X10'3 (1.1-4.8); MEAN CORPUSCULAR HEMOGLOBIN 32.7 PG (27.0-31.0); MEAN CORPUSCULAR HGB CONC 33.6 g/dL (33.0-36.5); MEAN CORPUSCULAR VOLUME 97.4 FL (78-98); MEAN PLATELET VOLUME 8.4 FL (7.4-10.4); MONOCYTES # (AUTO) 0.6 X10'3 (0-0.9); MONOCYTES % (AUTO) 5.7 % (2-12); NEUTROPHILS # (AUTO) 10.2 X10'3 (1.8-7.7); NEUTROPHILS % (AUTO) 89.9 % (42-75); PLATELET COUNT 198 X10'3 (140-440); RED BLOOD COUNT 4.05 X10'6 (4.20-5.60); RED CELL DISTRIBUTION WIDTH 14.2 % (11.5-14.5); WHITE BLOOD COUNT 11.3 X10'3 (4.5-11.0)
[2023-07-14 10:09] LABS: ALANINE AMINOTRANSFERASE 45 U/L (12-78); ALBUMIN 3.5 G/DL (3.4-5.0); ALBUMIN/GLOBULIN RATIO 0.9 (1.1-1.5); ALKALINE PHOSPHATASE 77 IU/L (46-116); AMYLASE 169 U/L (25-115); ANION GAP 12 (8-16); ASPARTATE AMINO TRANSFERASE 27 U/L (10-37); BILIRUBIN,TOTAL 0.7 MG/DL (0.1-1.0); BLOOD UREA NITROGEN 9 MG/DL (7-18); BUN/CREATININE RATIO 11.4 (10.0-20.0); CALCIUM 8.4 MG/DL (8.5-10.1); CHLORIDE 105 MMOL/L (99-107); CREATININE 0.79 MG/DL (0.40-0.90); GLUCOSE 130 MG/DL (70-104); MAGNESIUM 1.5 MG/DL (1.5-2.4); PHOSPHORUS 2.8 MG/DL (2.3-4.5); POTASSIUM 3.5 MMOL/L (3.5-5.1); SODIUM 141 MMOL/L (135-145); TOTAL CARBON DIOXIDE 24.3 MMOL/L (24-32); TOTAL PROTEIN 7.3 G/DL (6.4-8.2); eCRCL 78 ML/MIN; eGFR 78 ML/MIN
[2023-07-14 11:11] LABS: LIPASE > 375 U/L (16-77)
[2023-07-14] MEDS ORDERED: QUET400T13 PO (18:56)
[2023-07-14] MEDS ORDERED: ERGO500093 PO (18:56)
[2023-07-14 19:50] VITALS: BP 172/102; PULSE 89; RESP 18; TEMP 98.2; O2SAT 97
[2023-07-14 22:00] VITALS: BP 128/86; PULSE 95; RESP 16; TEMP 98.1; O2SAT 97
[2023-07-15] MEDS: HYDROmorphone 1 mg/ml syringe IV PRN ×6 (00:19→20:42)
[2023-07-15] MEDS: ondansetron/PF 4mg/2ml inj IV PRN ×3 (00:25→20:42)
[2023-07-15 06:14] LABS: PROTHROMBIN TIME 10.6 SECONDS (9.0-12.0)
[2023-07-15 06:21] LABS: BASOPHILS % (AUTO) 0.1 % (0-1); EOSINOPHILS % (AUTO) 0.1 % (0-6); HEMATOCRIT 38.3 % (35.0-45.0); HEMOGLOBIN 12.9 g/dl (12.0-16.0); LYMPHOCYTES # (AUTO) 0.6 X10'3 (1.1-4.8); MEAN CORPUSCULAR HEMOGLOBIN 33.2 PG (27.0-31.0); MEAN CORPUSCULAR HGB CONC 33.6 g/dL (33.0-36.5); MEAN CORPUSCULAR VOLUME 98.9 FL (78-98); MEAN PLATELET VOLUME 8.3 FL (7.4-10.4); MONOCYTES # (AUTO) 0.6 X10'3 (0-0.9); MONOCYTES % (AUTO) 6.4 % (2-12); NEUTROPHILS # (AUTO) 8.9 X10'3 (1.8-7.7); NEUTROPHILS % (AUTO) 87.4 % (42-75); PLATELET COUNT 155 X10'3 (140-440); RED BLOOD COUNT 3.87 X10'6 (4.20-5.60); RED CELL DISTRIBUTION WIDTH 14.2 % (11.5-14.5); WHITE BLOOD COUNT 10.1 X10'3 (4.5-11.0)
[2023-07-15 06:26] LABS: ALANINE AMINOTRANSFERASE 39 U/L (12-78); ALBUMIN 3.1 G/DL (3.4-5.0); ALBUMIN/GLOBULIN RATIO 0.8 (1.1-1.5); ALKALINE PHOSPHATASE 67 IU/L (46-116); AMYLASE 222 U/L (25-115); ANION GAP 8 (8-16); ASPARTATE AMINO TRANSFERASE 18 U/L (10-37); BLOOD UREA NITROGEN 4 MG/DL (7-18); BUN/CREATININE RATIO 5.2 (10.0-20.0); CALCIUM 8.4 MG/DL (8.5-10.1); CHLORIDE 104 MMOL/L (99-107); CREATININE 0.77 MG/DL (0.40-0.90); GLUCOSE 119 MG/DL (70-104); MAGNESIUM 1.5 MG/DL (1.5-2.4); PHOSPHORUS 2.2 MG/DL (2.3-4.5); POTASSIUM 3.3 MMOL/L (3.5-5.1); SODIUM 138 MMOL/L (135-145); TOTAL CARBON DIOXIDE 26.2 MMOL/L (24-32); eCRCL 80 ML/MIN; eGFR 80 ML/MIN
[2023-07-15 06:47] VITALS: BP 126/60; PULSE 91; RESP 16; TEMP 97.5; O2SAT 92
[2023-07-15 07:02] LABS: LIPASE > 375 U/L (16-77)
[2023-07-15] MEDS: K and/or MAG REPLACEMENT MC SCH ×2 (07:15→19:54)
[2023-07-15 08:00] VITALS: RESP 16; O2SAT 95
[2023-07-15] MEDS: enoxaparin 40mg/0.4ml syringe SUBCUT SCH (08:20)
[2023-07-15] MEDS: docusate sod 100mg capsule PO SCH ×2 (08:20→19:52)
[2023-07-15] MEDS: potassium Cl 20 mEq SR tablet PO PRN ×3 (08:21→17:04)
[2023-07-15 10:50] VITALS: BP 135/80; PULSE 98; RESP 16; TEMP 98.6; O2SAT 94
[2023-07-15] MEDS: dextrose 5%-1/2 normal saline 1,000 ML IV SCH ×2 (14:20→19:42)
[2023-07-15 18:00] VITALS: BP 147/95; PULSE 97; RESP 18; TEMP 98; O2SAT 94
[2023-07-15 20:00] VITALS: RESP 18; O2SAT 96
[2023-07-15 22:00] VITALS: BP 142/93; PULSE 94; RESP 16; TEMP 98.9; O2SAT 93
[2023-07-16] MEDS: HYDROmorphone 1 mg/ml syringe IV PRN ×6 (00:57→21:44)
[2023-07-16] MEDS: ondansetron/PF 4mg/2ml inj IV PRN (05:05)
[2023-07-16] MEDS: dextrose 5%-1/2 normal saline 1,000 ML IV SCH (05:08)
[2023-07-16 06:04] LABS: BASOPHILS % (AUTO) 0.3 % (0-1); EOSINOPHILS # (AUTO) 0.1 X10'3 (0-0.9); EOSINOPHILS % (AUTO) 0.6 % (0-6); HEMATOCRIT 34.8 % (35.0-45.0); HEMOGLOBIN 11.6 g/dl (12.0-16.0); LYMPHOCYTES % (AUTO) 9.9 % (21-51); MEAN CORPUSCULAR HEMOGLOBIN 33.1 PG (27.0-31.0); MEAN CORPUSCULAR HGB CONC 33.3 g/dL (33.0-36.5); MEAN CORPUSCULAR VOLUME 99.3 FL (78-98); MEAN PLATELET VOLUME 8.5 FL (7.4-10.4); MONOCYTES # (AUTO) 0.8 X10'3 (0-0.9); MONOCYTES % (AUTO) 8.2 % (2-12); NEUTROPHILS # (AUTO) 8.1 X10'3 (1.8-7.7); PLATELET COUNT 128 X10'3 (140-440); RED BLOOD COUNT 3.51 X10'6 (4.20-5.60); RED CELL DISTRIBUTION WIDTH 14.3 % (11.5-14.5)
[2023-07-16 06:13] LABS: ALANINE AMINOTRANSFERASE 26 U/L (12-78); ALBUMIN 2.6 G/DL (3.4-5.0); ALBUMIN/GLOBULIN RATIO 0.7 (1.1-1.5); ALKALINE PHOSPHATASE 73 IU/L (46-116); AMYLASE 72 U/L (25-115); ANION GAP 5 (8-16); ASPARTATE AMINO TRANSFERASE 15 U/L (10-37); BLOOD UREA NITROGEN 3 MG/DL (7-18); CALCIUM 8.2 MG/DL (8.5-10.1); CHLORIDE 104 MMOL/L (99-107); GLUCOSE 97 MG/DL (70-104); LIPASE 208 U/L (16-77); MAGNESIUM 1.6 MG/DL (1.5-2.4); PHOSPHORUS 1.9 MG/DL (2.3-4.5); POTASSIUM 3.5 MMOL/L (3.5-5.1); SODIUM 138 MMOL/L (135-145); TOTAL CARBON DIOXIDE 28.6 MMOL/L (24-32); TOTAL PROTEIN 6.4 G/DL (6.4-8.2); eCRCL 103 ML/MIN; eGFR > 90 ML/MIN
[2023-07-16 06:53] VITALS: BP 143/89; PULSE 93; RESP 16; TEMP 97.3; O2SAT 92
[2023-07-16 08:00] VITALS: RESP 16; O2SAT 98
[2023-07-16] MEDS: K and/or MAG REPLACEMENT MC SCH ×2 (08:00→20:00)
[2023-07-16] MEDS: docusate sod 100mg capsule PO SCH ×2 (08:00→19:07)
[2023-07-16] MEDS: enoxaparin 40mg/0.4ml syringe SUBCUT SCH (09:02)
[2023-07-16 10:33] VITALS: BP 133/88; PULSE 89; RESP 15; TEMP 97.3; O2SAT 93
[2023-07-16 20:00] VITALS: RESP 18
[2023-07-17] VITALS (7 sets, daily range): BP systolic 144–152; BP diastolic 88–102; PULSE 84–90; RESP 14–20; TEMP 97.9–98.5; O2SAT 96–98
[2023-07-17] MEDS: dextrose 5%-1/2 normal saline 1,000 ML IV SCH ×4 (00:33→19:12)
[2023-07-17] MEDS: HYDROmorphone 1 mg/ml syringe IV PRN ×6 (01:43→22:58)
[2023-07-17 06:02] LABS: BASOPHILS % (AUTO) 0.4 % (0-1); EOSINOPHILS # (AUTO) 0.2 X10'3 (0-0.9); EOSINOPHILS % (AUTO) 2.3 % (0-6); HEMATOCRIT 34.4 % (35.0-45.0); HEMOGLOBIN 11.6 g/dl (12.0-16.0); LYMPHOCYTES # (AUTO) 1.1 X10'3 (1.1-4.8); LYMPHOCYTES % (AUTO) 11.9 % (21-51); MEAN CORPUSCULAR HEMOGLOBIN 33.1 PG (27.0-31.0); MEAN CORPUSCULAR HGB CONC 33.7 g/dL (33.0-36.5); MEAN CORPUSCULAR VOLUME 98.2 FL (78-98); MEAN PLATELET VOLUME 8.5 FL (7.4-10.4); MONOCYTES # (AUTO) 0.7 X10'3 (0-0.9); MONOCYTES % (AUTO) 8.4 % (2-12); NEUTROPHILS # (AUTO) 6.9 X10'3 (1.8-7.7); PLATELET COUNT 145 X10'3 (140-440); RED CELL DISTRIBUTION WIDTH 14.4 % (11.5-14.5); WHITE BLOOD COUNT 8.9 X10'3 (4.5-11.0)
[2023-07-17 06:14] LABS: PROTHROMBIN TIME 10.7 SECONDS (9.0-12.0)
[2023-07-17 06:22] LABS: ALANINE AMINOTRANSFERASE 22 U/L (12-78); ALBUMIN 2.7 G/DL (3.4-5.0); ALBUMIN/GLOBULIN RATIO 0.7 (1.1-1.5); ALKALINE PHOSPHATASE 64 IU/L (46-116); AMYLASE 29 U/L (25-115); ANION GAP 7 (8-16); ASPARTATE AMINO TRANSFERASE 17 U/L (10-37); BLOOD UREA NITROGEN 2 MG/DL (7-18); BUN/CREATININE RATIO 3.2 (10.0-20.0); CALCIUM 8.8 MG/DL (8.5-10.1); CHLORIDE 101 MMOL/L (99-107); CREATININE 0.63 MG/DL (0.40-0.90); GLUCOSE 102 MG/DL (70-104); LIPASE 79 U/L (16-77); MAGNESIUM 1.7 MG/DL (1.5-2.4); PHOSPHORUS 2.6 MG/DL (2.3-4.5); SODIUM 138 MMOL/L (135-145); TOTAL CARBON DIOXIDE 30.3 MMOL/L (24-32); TOTAL PROTEIN 6.8 G/DL (6.4-8.2); eCRCL 98 ML/MIN; eGFR > 90 ML/MIN
[2023-07-17] MEDS ORDERED: potassium Cl 20 mEq SR tablet PO PRN (07:10)
[2023-07-17] MEDS ORDERED: magnesium 2GM in 50ml NS 50 ML IV PRN (07:10)
[2023-07-17] MEDS ORDERED: magnesium Cl slow-release 64mg tablet PO PRN (07:10)
[2023-07-17] MEDS ORDERED: potassium Cl 40MEQ/1/2NS 520ml 520 ML IV PRN (07:10)
[2023-07-17] MEDS ORDERED: magnesium 4gm in 100ml NS 100 ML IV PRN (07:10)
[2023-07-17] MEDS: K and/or MAG REPLACEMENT MC SCH ×4 (08:00→20:00)
[2023-07-17] MEDS: docusate sod 100mg capsule PO SCH ×2 (08:09→19:05)
[2023-07-17] MEDS: enoxaparin 40mg/0.4ml syringe SUBCUT SCH (08:09)
[2023-07-17] MEDS: potassium Cl 20 mEq SR tablet PO PRN ×3 (08:11→17:45)
[2023-07-17 09:53] LABS: MAGNESIUM 1.6 MG/DL (1.5-2.4)
[2023-07-17 10:04] LABS: POTASSIUM 2.9 MMOL/L (3.5-5.1)
[2023-07-17] MEDS ORDERED: bisacodyl 10mg suppository rectal RC PRN (13:15)
[2023-07-17 15:58] LABS: CHOL/HDL RATIO 3.6 (0.00-4.99); CHOLESTEROL 182 MG/DL (0-200); HDL CHOLESTEROL 50 MG/DL (35-60); LDL CHOLESTEROL 97 MG/DL (50-100); TRIGLYCERIDES 124 MG/DL (20-135)
[2023-07-18] MEDS: HYDROmorphone 1 mg/ml syringe IV PRN ×2 (03:05→07:30)
[2023-07-18 06:16] LABS: BASOPHILS % (AUTO) 0.6 % (0-1); EOSINOPHILS # (AUTO) 0.2 X10'3 (0-0.9); EOSINOPHILS % (AUTO) 2.4 % (0-6); HEMATOCRIT 32.2 % (35.0-45.0); HEMOGLOBIN 10.8 g/dl (12.0-16.0); LYMPHOCYTES # (AUTO) 1.1 X10'3 (1.1-4.8); LYMPHOCYTES % (AUTO) 15.5 % (21-51); MEAN CORPUSCULAR HEMOGLOBIN 33.1 PG (27.0-31.0); MEAN CORPUSCULAR HGB CONC 33.5 g/dL (33.0-36.5); MEAN CORPUSCULAR VOLUME 98.8 FL (78-98); MEAN PLATELET VOLUME 8.1 FL (7.4-10.4); MONOCYTES # (AUTO) 0.8 X10'3 (0-0.9); MONOCYTES % (AUTO) 11.5 % (2-12); NEUTROPHILS # (AUTO) 4.8 X10'3 (1.8-7.7); PLATELET COUNT 153 X10'3 (140-440); RED BLOOD COUNT 3.26 X10'6 (4.20-5.60); RED CELL DISTRIBUTION WIDTH 13.9 % (11.5-14.5); WHITE BLOOD COUNT 6.8 X10'3 (4.5-11.0)
[2023-07-18 06:28] LABS: PROTHROMBIN TIME 10.9 SECONDS (9.0-12.0)
[2023-07-18 06:34] VITALS: BP 158/100; PULSE 83; RESP 15; TEMP 97.9; O2SAT 94
[2023-07-18 06:49] LABS: ALANINE AMINOTRANSFERASE 26 U/L (12-78); ALBUMIN 2.6 G/DL (3.4-5.0); ALBUMIN/GLOBULIN RATIO 0.7 (1.1-1.5); ALKALINE PHOSPHATASE 59 IU/L (46-116); AMYLASE 23 U/L (25-115); ANION GAP 6 (8-16); ASPARTATE AMINO TRANSFERASE 18 U/L (10-37); BILIRUBIN,TOTAL 0.8 MG/DL (0.1-1.0); BLOOD UREA NITROGEN 1 MG/DL (7-18); BUN/CREATININE RATIO 1.6 (10.0-20.0); CALCIUM 8.8 MG/DL (8.5-10.1); CHLORIDE 104 MMOL/L (99-107); CREATININE 0.61 MG/DL (0.40-0.90); GLUCOSE 110 MG/DL (70-104); LIPASE 71 U/L (16-77); MAGNESIUM 1.8 MG/DL (1.5-2.4); PHOSPHORUS 2.8 MG/DL (2.3-4.5); POTASSIUM 3.8 MMOL/L (3.5-5.1); SODIUM 139 MMOL/L (135-145); TOTAL CARBON DIOXIDE 29.1 MMOL/L (24-32); TOTAL PROTEIN 6.4 G/DL (6.4-8.2); eCRCL 101 ML/MIN; eGFR > 90 ML/MIN
[2023-07-18] MEDS: K and/or MAG REPLACEMENT MC SCH ×2 (06:58→08:00)
[2023-07-18] MEDS: dextrose 5%-1/2 normal saline 1,000 ML IV SCH (07:29)
[2023-07-18 07:37] VITALS: RESP 18
[2023-07-18] MEDS: docusate sod 100mg capsule PO SCH (07:42)
[2023-07-18] MEDS: enoxaparin 40mg/0.4ml syringe SUBCUT SCH (07:43)
[2023-07-18 10:00] VITALS: BP 146/99; PULSE 95; RESP 16; TEMP 97.9; O2SAT 97
[2023-07-18 12:05] VITALS: RESP 18
[2023-07-18] MEDS: HYDROmorphone inj. 0.5 MG/0.5 ML DISP.SYRIN IV PRN (12:05)
== END 2023-07-18 12:10 | disposition home or self-care (01) | DRG 282 ==
LOC: ER 19:26 → ED HOLD 22:15 → EDBEDREQTM 22:28 → EDBEDREQ 07-14 17:46 → ORTHO 4S 07-14 19:50
PROVIDERS: ADMIT Internal Medicine; ATTEND Internal Medicine
DX: K85.20 Alcohol induced acute pancreatitis without necrosis or infection (principal); D72.829 Elevated white blood cell count, unspecified; F10.20 Alcohol dependence, uncomplicated; F31.9 Bipolar disorder, unspecified; K50.90 Crohn's disease, unspecified, without complications; Z87.59 Personal history of other complications of pregnancy, childbirth and the puerperium; Z90.721 Acquired absence of ovaries, unilateral
CPT/HCPCS: 36415; 74177; 76700; 80053; 80061; 81001; 81025; 82150; 82948; 83690; 83735; 84100; 84132; 84145; 85025; 85610; 87081; 99285; G0378; J0360; J1170; J1200; J1650; J1885; J2270; J2405; J2765; J3480; J3490; J7030; J7042; J7070; Q9967

== ENCOUNTER 2024-01-10 11:43 | Day surgery (SDC) | payer MEDICAID ==
[~2024-01-10] VITALS: Ht 162.6 cm; Wt 86.3 kg
[~2024-01-10 11:43] MED LIST changes: -CHOL100046 PO; -CITA20TA28 PO; -DIVA-51 PO; +ERGO500093 PO; -NALT50TA PO; -TRAZ-251 PO
[2024-01-10 12:20] VITALS: BP 116/95; PULSE 90; RESP 12
[2024-01-10] MEDS ORDERED: NALT50TA PO (12:22)
[2024-01-10] MEDS ORDERED: PANT-47 PO (12:22)
[2024-01-10] MEDS ORDERED: QUET400T5 PO (12:24)
[2024-01-10] MEDS ORDERED: fentaNYL/PF 50MCG/1 ML 2ML syringe ONE (13:34)
[2024-01-10] MEDS ORDERED: MIDAZolam 1 MG/ML 5ML VIAL ONE (13:35)
[2024-01-10] MEDS ORDERED: diphenhydrAMINE 50 mg/ml inj ONE (13:47)
[2024-01-10 14:07] VITALS: BP 141/96; PULSE 83; RESP 16; O2SAT 98
[2024-01-10 14:17] VITALS: BP 131/91; PULSE 81; RESP 16; O2SAT 96
[2024-01-10 14:37] VITALS: BP 121/93; PULSE 86; RESP 12; O2SAT 95
[2024-01-10 14:47] VITALS: BP 114/70; PULSE 96; RESP 12; O2SAT 99
== END 2024-01-10 14:50 | disposition home or self-care (01) ==
LOC: GI LAB 11:43
PROVIDERS: ATTEND Internal Medicine Gastroenterology
DX: Z12.11 Encounter for screening for malignant neoplasm of colon (principal); D12.2 Benign neoplasm of ascending colon; Z86.010 Personal history of colon polyps
CPT/HCPCS: 45385; 99152; J1200; J2250; J3010; J7030; Z7512; 45380; A4620; C1889